=== PATIENT | female | born 1995 | race Caucasian/White ===

== ENCOUNTER 2016-11-21 19:16 | Emergency (ER) | payer BC, OTHER ==
[~2016-11-21] VITALS: Ht 157.5 cm; Wt 55.0 kg
[2016-11-21 19:28] VITALS: Ht 157.5 cm; Wt 55.0 kg
[2016-11-21] MEDS ORDERED: HYDROCODONE/APAP (5/325) TAB PO ONE (20:00)
--- NOTE | 2016-11-21 20:19 | RADRPT ---
PROCEDURE: Left second digit series CLINICAL INDICATION: Pain following trauma TECHNIQUE: AP, lateral and oblique views COMPARISON: None available FINDINGS: No acute fractures or dislocations are present. No radiodense foreign bodies are present. Mild sof t tissue swelling is present. IMPRESSION: 1. No acute fractures or dislocations. RPTAT: HDC .Eemlyn Cano MD, Date Time Electronically viewed and signed by .Emelyn Cano MD, on 11/21/2016 20:18 .C/
[2016-11-21] MEDS ORDERED: HYDR-906 PO (21:51)
[2016-11-21] MEDS ORDERED: IBUP-1542 PO (21:51)
[2016-11-21 22:33] VITALS: BP 105/72; PULSE 65; RESP 16; TEMP 98.1
--- NOTE | 2016-11-22 15:38 | ERD ---
ER Documentation Chief Complaint Date/Time DATE: 11/22/16 TIME: 15:16 Chief Complaint left 2nd finger pain, got slammed on car door yesterday HPI This is a 21 year old female who presents to the ED with left 2nd finger pain after being slammed on a car door yesterday. Pt describes the pain as throbbing and intermittent, pain is aggravated upon movement and is tender on the distal phalanx. Pt did not take any medication for symptom relief. Denies numbness, tingling or fever. Medical and surgical history are unremarkable. ROS All systems reviewed and are negative except as per history of present illness. Medications Home Meds Active Scripts Ibuprofen* (Motrin*) 600 Mg Tab, 600 MG PO Q6, #30 TAB Prov:MARIE DOLAN 11/21/16 Hydrocodone/Acetaminophen (Marion 5-325 Tablet) 1 Each Tablet, 1 TAB PO Q6H Y for PAIN, #7 TAB Prov:MARIE DOLAN 11/21/16 Allergies Allergies: Coded Allergies: No Known Allergy (Unverified , 11/21/16) PMhx/Soc History of Surgery: No Anesthesia Reaction: No Hx Neurological Disorder: No Hx Respiratory Disorders: No Hx Cardiac Disorders: No Hx Psychiatric Problems: No Hx Alcohol Use: No Hx Substance Use: No Hx Tobacco Use: No Smoking Status: Never smoker Physical Exam Vitals Vital Signs Date Time Temp Pulse Resp B/P Pulse Ox O2 Delivery O2 Flow Rate FiO2 11/21/16 22:33 98.1 65 16 105/72 99 Room Air 11/21/16 19:28 98.5 94 20 126/69 99 Physical Exam Physical Exam CONST: Well-developed, well-nourished, in no acute distress. Nontoxic in appearance. HEENT: Atraumatic. Normal conjunctiva. EOM intact. TM intact. External ear is normal. Clear oropharynx without erythema. No uvular deviation. Moist mucous membranes. Supple neck. No meningismus. No submandibular induration. RESP: Clear to auscultation bilaterally. No wheezing. CARDIO: Regular rate and rhythm, no murmurs. ABD: Soft, non tender, non distended. Normal bowel sounds. No McBurney' s point tenderness. No guarding or rigidity. No peritoneal signs. SKIN: Subungual hematoma on the left 2nd fingernail extending from the cuticle to the edge of nail. Left finger is non-erythematous and no visible dislocation present. No open wounds. No petechiae or rashes. BACK: No midline or flank tenderness. EXT: No swelling on the left 2nd finger. ROM is limited due to pain. No cyanosis or edema. Distal pulses equal and bilateral. NEURO: Awake and alert, appropriate for age. Normal speech. Steady gait. Results 24 hrs Current Medications Medications (Trade) Dose Ordered Sig/Magi Route PRN Reason Start Time Stop Time Status Last Admin Dose Admin Acetaminophen/ Hydrocodone Bitart (Marion (5/325)) 1 tab ONCE ONCE PO 11/21/16 20:00 11/21/16 20:01 DC 11/21/16 20:18 PROCEDURE: Left second digit series CLINICAL INDICATION: Pain following trauma TECHNIQUE: AP, lateral and oblique views COMPARISON: None available FINDINGS: No acute fractures or dislocations are present. No radiodense foreign bodies are present. Mild soft tissue swelling is present. IMPRESSION: 1. No acute fractures or dislocations. RPTAT: HDC .Emelyn Cano MD, MD Date Time Electronically viewed and signed by .Emelyn Cano MD, MD on 11/21/2016 20: 18 Procedures/MDM EMERGENCY DEPARTMENT COURSE/MEDICAL DECISION MAKING This is a 21 year old female who comes to the emergency room secondary to complaints of left second finger pain and subungual hematoma due to a crush injury yesterday. There are no visible open wounds, swelling or erythema noted on the affected area. Subungual hematoma extends from the cuticle to the distal tip of the nail. The patient was given norco for pain. On re-evaluation, the patient's symptoms improved. XR of the left 2nd finger was done and was interpreted by a radiologist. Result is negative for fractures or dislocations. Decompression of the subungual hematoma was done using a cautery (heated wire). Blood was drained from the cautery site and wound care was done. Pt tolerated the procedure. My primary diagnosis is finger pain. Secondary diagnosis is subungual hematoma. Differential diagnoses considered but not limited to fractures, foreign body, cellulitis, osteomyelitis, dislocation, tendinitis, ingrown toenail. Pt is hemodynamically stable upon reassessment. There are no new complaints during the ED course. The patient was discharged for outpatient management with a prescription for norco and ibuprofen. The patient was advised to followup with their PMD in 1-2 days and to return to the Emergency Department if there are any new or worsening symptoms. The patient understood and agreed with the diagnosis, treatment and plan. Patient is stable for discharge at this time. Departure Diagnosis: Primary Impression: Finger pain, left Additional Impression: Subungual hematoma of digit of hand Encounter type: initial encounter Qualified Code: S60.10XA - Subungual hematoma of digit of hand, initial encounter Condition: Stable Patient Instructions: Subungual Hematoma Additional Instructions: Call your primary care doctor tomorrow for an appointment during the next 1-2 days. Return to the emergency department immediately should you have any new or worsening symptoms. Take all medications as directed. MARIE DOLAN November 22, 2016 15:26
== END 2016-11-21 22:34 | disposition home or self-care (01) ==
LOC: FTE 19:16
DX: S60.122A Contusion of left index finger with damage to nail, initial encounter (principal); W23.1XXA Caught, crushed, jammed, or pinched between stationary objects, initial encounter; Y92.9 Unspecified place or not applicable
CPT/HCPCS: 73140; Z7610